=== PATIENT | male | born 1995 | race African-American/Black ===

== ENCOUNTER 2018-04-19 03:41 | Emergency (ER) ==
[2018-04-19 03:47] VITALS: BP 130/76; TEMP 97.9; BMI 26.4
[2018-04-19] MEDS ORDERED: LIDOCAINE HCL 1% SDV SUBCUT STA (03:58)
--- NOTE | 2018-04-19 04:46 | ED.PDOC ---
General ED Provider: Dr. FELICITY SANCHEZ Chief Complaint: Laceration Stated Complaint: no sure how he cut his right forearm but had a larger laceration with some bleeding controlled with pressure. Time Seen by Physician: 04:10 Mode of Arrival: Walk-In Information Source: Patient Nursing and Triage Documentation Reviewed and Agree: Yes Does patient meet sepsis criteria?: No System Inflammatory Response Syndrome: Not Applicable Sepsis Protocol: For patient's 13 years and over: Temp is 96.8 and below OR 101 and greater Pulse >90 BPM Resp >20/minute Acutely Altered Mental Status Are patient's symptoms suggestive of a new infection, such as: -Pneumonia -Skin, Soft Tissue -Endocarditis -UTI -Bone, Joint Infection -Implantable Device -Acute Abdominal Infection -Wound Infection -Meningitis -Blood Stream Catheter Infection -Unknown Review of Systems - Review Of Systems Constitutional: Reports: No symptoms Eyes: Reports: No symptoms Ears, Nose, Mouth, Throat: Reports: No symptoms Respiratory: Reports: No symptoms Cardiac: Reports: No symptoms GI: Reports: No symptoms : Reports: No symptoms Musculoskeletal: Reports: No symptoms Neurological: Reports: Anxiety Endocrine: Reports: No symptoms Hematologic/Lymphatic: Reports: No symptoms All Other Systems: Reviewed and Negative Past Medical History - Past Medical History Previously Healthy: Yes Endocrine: Reports: None Cardiovascular: Reports: None Respiratory: Reports: None Hematological: Reports: None Gastrointestinal: Reports: None Genitourinary: Reports: None Neuro/Psych: Reports: None Musculoskeletal: Reports: None Cancer: Reports: None - Surgical History General Surgical History: Reports: None - Family History Family History: Reports: None - Social History Smoking Status: Current every day smoker, Heavy tobacco smoker Hx Substance Use: No Alcohol Screening: Occasionally - Immunizations Tetanus Shot up to Date: Yes Physical Exam - Physical Exam Appearance: Obese Pain Distress: Mild Respiratory: Airway patent, Breath sounds clear, Breath sounds equal, Respirations nonlabored Cardiovascular: RRR, Pulses normal, No rub, No murmur Musculoskeletal: Normal strength, ROM intact, No edema, No calf tenderness Skin: Warm, Dry, Normal color Neurological: Alert, Oriented Psychiatric: Anxious Procedures - Laceration/Wound Repair Right Dorsal Forearm Wound Description: Linear, Irregular Wound Length (cm): 4 Wound Width: 1.5 Wound Depth: 0.3 Wound Explored: Clean Wound Irrigated: Yes Wound Prep: Saline, Hibiclens Anesthesia: Lidocaine Wound Repaired With: Sutures Suture Size and Type: Ethlone 4.0 Number of Sutures: 20 (Running ) Layer Closure?: No Sterile Dressing Applied?: Yes Splint Applied?: No Sling Applied?: No Progress: Tolerated well Critical Care Note - Critical Care Note Total Time (mins): 0 Course - Course Orders, Labs, Meds: Orders Category Date Time Status Lidocaine HCl/Pf [Lidocaine HCl 1% Sdv] MEDS 04/19/18 03:58 Discontinued 5 ml SUBCUT ONCE STA Medications Discontinued Medications Generic Name Dose Route Start Last Admin Trade Name Maura PRN Reason Stop Dose Admin Lidocaine HCl 5 ml 04/19/18 03:58 04/19/18 04:19 Lidocaine Hcl 1% Sdv SUBCUT 04/19/18 03:59 5 ml ONCE STA Administration Vital Signs: Temp Pulse Resp BP Pulse Ox 04/19/18 03:42 97.9 F 86 14 130/76 99 Departure - Departure Time of Disposition: 04:48 Disposition: HOME SELF-CARE Discharge Problem: Forearm laceration with complication Qualifiers: Encounter type: initial encounter Laterality: right Qualified Code(s): S51.811A - Laceration without foreign body of right forearm, initial encounter Instructions: Laceration (ED) Condition: Good Pt referred to PMD for follow-up: Yes (in 7-10 days ) IPMP verified?: No Additional Instructions: Have sutures removed in 7-10 days Keep wound clean and DRy Report any sings of infections. Allergies/Adverse Reactions: Allergies No Known Allergies Allergy (Unverified 04/19/18 03:48) Home Medications: Ambulatory Orders Dextroamphetamine/Amphetamine [Adderall Xr 25 mg Capsule] 25 mg PO DAILY Disposition Discussed With: Patient, Family
== END 2018-04-19 05:00 | disposition home or self-care (01) ==
LOC: ED 03:41
DX: S51.811A Laceration without foreign body of right forearm, initial encounter (principal); F17.210 Nicotine dependence, cigarettes, uncomplicated; W45.8XXA Other foreign body or object entering through skin, initial encounter
CPT/HCPCS: 96372; 99283